=== PATIENT | male | born 1990 | race Caucasian/White ===

== ENCOUNTER → 2023-07-23 | Outpatient (REF) | payer OTHER ==
[2023-07-23 10:30] LABS: SEMEN APPEARANCE OPAQUE (OPAQUE); SEMEN VISCOSITY LIQUID (LIQUID); SEMEN VOLUME 6.4 ml (2.0-5.0); SEMEN pH 8.5 (7.0-8.0)
[2023-07-23 10:31] LABS: WBC CONCENTRATION >1 M/ml (<=1 M/ml)
== END ==
LOC: M LAB REF 10:18
PROVIDERS: ATTEND Physician Assistant
DX: N46.9 Male infertility, unspecified (principal)

== ENCOUNTER 2024-01-30 13:11 | Inpatient (IN) | payer OTHER ==
[~2024-01-30] VITALS: Ht 177.8 cm; Wt 63.2 kg
[2024-01-30 13:52] LABS: HEMATOCRIT 43.7 % (42.0-52.0); HEMOGLOBIN 14.5 g/dl (13.5-17.5); MEAN CORPUSCULAR HEMOGLOBIN 28.9 pg (27.0-33.0); MEAN CORPUSCULAR HGB CONC 33.2 g/dl (32.0-36.5); MEAN CORPUSCULAR VOLUME 87.1 fl (80.0-96.0); PLATELET COUNT, AUTOMATED 233 10^3/uL (150-450); RED BLOOD COUNT 5.02 10^6/uL (4.30-6.10); WHITE BLOOD COUNT 11.3 10^3/uL (4.0-10.0)
[2024-01-30 14:17] LABS: AMPHETAMINES LEVEL URINE NEGATIVE (NEGATIVE); BARBITURATES URINE NEGATIVE (NEGATIVE); BENZODIAZEPINES URINE NEGATIVE (NEGATIVE); CANNABINOIDS URINE NEGATIVE (NEGATIVE); COCAINE METABOLITE URINE NEGATIVE (NEGATIVE); METHADONE URINE NEGATIVE (NEGATIVE); OPIATES URINE NEGATIVE (NEGATIVE); PHENCYCLIDINE URINE NEGATIVE (NEGATIVE)
[2024-01-30 14:19] LABS: ETHYL ALCOHOL (ETHANOL) < 0.003 % (0.000-0.010)
[2024-01-30 14:21] LABS: ALBUMIN 4.4 G/DL (3.2-5.2); ALKALINE PHOSPHATASE 70 U/L (46-116); ALT/SGPT 38 U/L (7.0-40); AST/SGOT 28 U/L (<34); BILIRUBIN,DIRECT 0.1 MG/DL (<0.4); BILIRUBIN,TOTAL 0.3 MG/DL (0.3-1.2); BLOOD UREA NITROGEN 26 MG/DL (9-23); CALCIUM LEVEL 9.5 MG/DL (8.5-10.1); CARBON DIOXIDE LEVEL 31 MMOL/L (20-31); CHLORIDE LEVEL 106 MMOL/L (98-107); CREATININE FOR GFR 1.65 MG/DL (0.70-1.30); GLOMERULAR FILTRATION RATE 51.7 (>60); GLUCOSE, FASTING 87 MG/DL (60-100); POTASSIUM SERUM 4.1 MMOL/L (3.5-5.1); SALICYLATE LEVEL < 3.0 MG/DL (<30); SODIUM LEVEL 142 MMOL/L (136-145); TOTAL PROTEIN 7.4 G/DL (5.7-8.2)
[2024-01-30 14:23] LABS: THYROID STIMULATING HORMONE 1.452 uIU/ML (0.55-4.78)
[2024-01-30] MEDS: NICOTINE 21MG/24HR 1 EA TRANSDERMAL TD ONE (16:22)
[2024-01-30] MEDS ORDERED: HOME MED LIST COMPLETE! XX SCH (18:10)
[2024-01-30] MEDS ORDERED: diphenhydrAMINE 25MG CAP PO PRN (22:15)
[2024-01-30] MEDS ORDERED: MAALOX 30 ML SUSP *UDC PO PRN (22:15)
[2024-01-30] MEDS ORDERED: ACETAMINOPHEN TAB 650MG DOSE (2X325MG) PO PRN (22:15)
[2024-01-30] MEDS ORDERED: LORazepam 1 MG TAB PO PRN (22:15)
[2024-01-30] MEDS ORDERED: MOM 30ML SUSPENSION UDC PO PRN (22:15)
[2024-01-30] MEDS ORDERED: IBUPROFEN 400MG TAB PO PRN (22:15)
[2024-01-31] MEDS: traZODone 50 MG TAB PO PRN (00:20)
[2024-01-31] MEDS ORDERED: LORazepam 2 MG TAB PO PRN (00:40)
[2024-01-31 00:45] VITALS: BP 135/85; TEMP 98.1; O2SAT 100
[2024-01-31 06:14] VITALS: BP 122/59; TEMP 97.6; O2SAT 100
[2024-01-31] MEDS: FOLIC ACID 1MG TAB PO SCH (09:18)
[2024-01-31] MEDS: MULTIVITAMINS/MINERALS THERAP 1 TAB PO SCH (09:18)
[2024-01-31] MEDS: THIAMINE 100 MG TAB PO SCH (09:18)
[2024-01-31] MEDS: OLANZapine ORAL DISINTEGRATING TAB 5MG PO PRN (09:21)
[2024-01-31 09:53] LABS: BLOOD UREA NITROGEN 24 MG/DL (9-23); CALCIUM LEVEL 9.1 MG/DL (8.5-10.1); CARBON DIOXIDE LEVEL 28 MMOL/L (20-31); CHLORIDE LEVEL 106 MMOL/L (98-107); CREATININE FOR GFR 1.26 MG/DL (0.70-1.30); GLOMERULAR FILTRATION RATE > 60.0 (>60); GLUCOSE, FASTING 96 MG/DL (60-100); POTASSIUM SERUM 4.4 MMOL/L (3.5-5.1); SODIUM LEVEL 138 MMOL/L (136-145)
[2024-01-31 14:00] VITALS: BP 121/70
[2024-01-31 16:04] VITALS: BP 121/70; TEMP 97.6; O2SAT 100
[2024-01-31 21:00] VITALS: BP 124/70
[2024-02-01 06:11] VITALS: BP 118/55
[2024-02-01 06:18] VITALS: BP 118/55; TEMP 98.7; O2SAT 100
[2024-02-01 07:52] LABS: CHOLESTEROL RISK RATIO 2.51 (<5); HDL CHOLESTEROL 43.7 MG/DL (>40); LDL CHOLESTEROL 53.5 MG/DL (<100); NON-HDL-C 66.3 MG/DL
[2024-02-01] MEDS: OLANZapine 5 MG TAB PO SCH (08:15)
[2024-02-01 09:00] VITALS: BP 118/55; TEMP 98.7; O2SAT 100
[2024-02-01 14:00] VITALS: BP 104/58
[2024-02-01 16:11] VITALS: BP 104/58; TEMP 98.6; O2SAT 100
[2024-02-02 06:18] VITALS: BP 129/66; TEMP 98.7; O2SAT 97
[2024-02-02] MEDS: NICOTINE 21MG/24HR 1 EA TRANSDERMAL TD PRN (07:45)
[2024-02-02 15:14] VITALS: BP 120/58; TEMP 98.8; O2SAT 99
[2024-02-02] MEDS: OLANZapine 5 MG TAB PO SCH (18:46)
[2024-02-03 06:14] VITALS: BP 114/69; TEMP 98.9; O2SAT 96
[2024-02-03] MEDS ORDERED: TRAZ-252 PO (09:56)
[2024-02-03] MEDS ORDERED: OLAN1TAB16 PO (09:56)
[2024-02-03] MEDS ORDERED: NICO21PAT TD (09:56)
== END 2024-02-03 13:19 | disposition home or self-care (01) | DRG 885 ==
LOC: M ED 13:11 → EDBD 13:11 → M ED INP 22:15 → M PSY 23:29
PROVIDERS: ADMIT Student in an Organized Health Care Education/Training Program; ATTEND Student in an Organized Health Care Education/Training Program
DX: F20.9 Schizophrenia, unspecified (principal); F19.951 Other psychoactive substance use, unspecified with psychoactive substance-induced psychotic disorder with hallucinations; F31.9 Bipolar disorder, unspecified; F10.90 Alcohol use, unspecified, uncomplicated; F17.290 Nicotine dependence, other tobacco product, uncomplicated

== ENCOUNTER 2024-02-04 16:04 | Inpatient (IN) | payer OTHER ==
[~2024-02-04] VITALS: Ht 177.8 cm; Wt 62.0 kg
[~2024-02-04 16:04] MED LIST: NICO21PAT TD; OLAN1TAB16 PO; TRAZ-252 PO
[2024-02-04 18:58] LABS: BASO % 0.3 % (0.0-1.0); EOS # 0.1 10^3/uL (0.0-0.5); EOS % 0.8 % (0.0-3.0); HEMATOCRIT 42.3 % (42.0-52.0); HEMOGLOBIN 14.1 g/dl (13.5-17.5); LYMPH # 2.2 10^3/uL (1.5-5.0); LYMPH % 17.2 % (24.0-44.0); MEAN CORPUSCULAR HEMOGLOBIN 28.7 pg (27.0-33.0); MEAN CORPUSCULAR HGB CONC 33.3 g/dl (32.0-36.5); MONO # 0.6 10^3/uL (0.0-0.8); NEUTROPHILS # 9.7 10^3/uL (1.5-8.5); NEUTROPHILS % 76.3 % (36.0-66.0); PLATELET COUNT, AUTOMATED 214 10^3/uL (150-450); RED BLOOD COUNT 4.92 10^6/uL (4.30-6.10); WHITE BLOOD COUNT 12.7 10^3/uL (4.0-10.0)
[2024-02-04 19:18] LABS: BLOOD UREA NITROGEN 18 MG/DL (9-23); CALCIUM LEVEL 9.2 MG/DL (8.5-10.1); CARBON DIOXIDE LEVEL 28 MMOL/L (20-31); CHLORIDE LEVEL 103 MMOL/L (98-107); CREATININE FOR GFR 1.18 MG/DL (0.70-1.30); GLOMERULAR FILTRATION RATE > 60.0 (>60); GLUCOSE, FASTING 102 MG/DL (60-100); POTASSIUM SERUM 4.4 MMOL/L (3.5-5.1); SODIUM LEVEL 135 MMOL/L (136-145)
[2024-02-04] MEDS: ceFAZolin SOD 2 GM in D5W MINI-BAG PLUS 50 ML IV ONE (20:42)
[2024-02-04] MEDS: KETOROLAC 30 MG/ML 1ML VIAL IV ONE (20:43)
[2024-02-04 20:45] LABS: ERYTHROCYTE SEDIMENTATION RATE 30 mm/hr (0-15)
[2024-02-04] MEDS: NS 500 ML IV ONE (22:33)
[2024-02-04 22:45] LABS: ALBUMIN 3.7 G/DL (3.2-5.2); ALKALINE PHOSPHATASE 63 U/L (46-116); ALT/SGPT 38 U/L (7.0-40); AST/SGOT 12 U/L (<34); BILIRUBIN,TOTAL 0.7 MG/DL (0.3-1.2); BLOOD UREA NITROGEN 20 MG/DL (9-23); CALCIUM LEVEL 8.8 MG/DL (8.5-10.1); CARBON DIOXIDE LEVEL 29 MMOL/L (20-31); CHLORIDE LEVEL 106 MMOL/L (98-107); CREATININE FOR GFR 1.34 MG/DL (0.70-1.30); GLOMERULAR FILTRATION RATE > 60.0 (>60); GLUCOSE, FASTING 109 MG/DL (60-100); POTASSIUM SERUM 4.2 MMOL/L (3.5-5.1); SODIUM LEVEL 140 MMOL/L (136-145); TOTAL PROTEIN 6.8 G/DL (5.7-8.2)
[2024-02-04] MEDS ORDERED: ACETAMINOPHEN TAB 650MG DOSE (2X325MG) PO PRN (23:20)
[2024-02-05] VITALS (8 sets, daily range): BP systolic 99–122; BP diastolic 55–76; TEMP 95.9–98.7; O2SAT 93–99
[2024-02-05] MEDS ORDERED: OLAN1TAB20 PO (00:24)
[2024-02-05] MEDS ORDERED: NICO1DIS12 TD (00:38)
[2024-02-05] MEDS ORDERED: TRAZ1TAB10 PO (00:38)
[2024-02-05] MEDS ORDERED: HOME MED LIST COMPLETE! XX SCH (00:40)
[2024-02-05] MEDS: NS 1,000 ML IV SCH (02:42)
[2024-02-05] MEDS: ceFAZolin SOD 2 GM in IV 1 EA IV SCH (05:27)
[2024-02-05] MEDS: CLOTRIMAZOLE 1% TOPICAL CREAM 30GM TOP SCH (06:00)
[2024-02-05 07:01] LABS: BASO # 0.1 10^3/uL (0.0-0.2); BASO % 0.6 % (0.0-1.0); EOS # 0.4 10^3/uL (0.0-0.5); EOS % 4.5 % (0.0-3.0); HEMATOCRIT 40.8 % (42.0-52.0); HEMOGLOBIN 13.2 g/dl (13.5-17.5); LYMPH # 1.6 10^3/uL (1.5-5.0); LYMPH % 19.6 % (24.0-44.0); MEAN CORPUSCULAR HEMOGLOBIN 28.4 pg (27.0-33.0); MEAN CORPUSCULAR HGB CONC 32.4 g/dl (32.0-36.5); MEAN CORPUSCULAR VOLUME 87.7 fl (80.0-96.0); MONO # 0.7 10^3/uL (0.0-0.8); MONO % 8.9 % (2.0-8.0); NEUTROPHILS # 5.4 10^3/uL (1.5-8.5); PLATELET COUNT, AUTOMATED 176 10^3/uL (150-450); RED BLOOD COUNT 4.65 10^6/uL (4.30-6.10); WHITE BLOOD COUNT 8.2 10^3/uL (4.0-10.0)
[2024-02-05 07:28] LABS: ALBUMIN 3.4 G/DL (3.2-5.2); ALKALINE PHOSPHATASE 62 U/L (46-116); ALT/SGPT 32 U/L (7.0-40); AST/SGOT 8 U/L (<34); BILIRUBIN,TOTAL 0.4 MG/DL (0.3-1.2); BLOOD UREA NITROGEN 24 MG/DL (9-23); CALCIUM LEVEL 8.8 MG/DL (8.5-10.1); CARBON DIOXIDE LEVEL 29 MMOL/L (20-31); CHLORIDE LEVEL 108 MMOL/L (98-107); CREATININE FOR GFR 1.36 MG/DL (0.70-1.30); GLOMERULAR FILTRATION RATE > 60.0 (>60); GLUCOSE, FASTING 92 MG/DL (60-100); POTASSIUM SERUM 4.1 MMOL/L (3.5-5.1); SODIUM LEVEL 143 MMOL/L (136-145); TOTAL PROTEIN 6.4 G/DL (5.7-8.2)
[2024-02-05] MEDS: DOCUSATE SODIUM 100MG CAPSULE PO SCH ×2 (09:00→20:14)
[2024-02-05] MEDS: KETOROLAC 30 MG/ML 1ML VIAL IV PRN (10:36)
[2024-02-05] MEDS ORDERED: LIDOCAINE 2% 100MG/5ML SDV (FOR ANES.) As Ordered ONE (14:29)
[2024-02-05] MEDS ORDERED: KETOROLAC 60MG 2ML VIAL As Ordered ONE (14:29)
[2024-02-05] MEDS ORDERED: propofoL 200 MG/20 ML VIAL As Ordered ONE (14:29)
[2024-02-05] MEDS ORDERED: ACETAMINOPHEN 1000MG 100ML IV BAG As Ordered ONE (14:29)
[2024-02-05] MEDS ORDERED: ONDANSETRON 4MG 2ML VIAL As Ordered ONE (14:29)
[2024-02-05] MEDS ORDERED: fentaNYL 100 MCG/2 ML INJECTION As Ordered ONE (14:30)
[2024-02-05] MEDS ORDERED: MIDAZOLAM INJ 2MG/2ML VIAL As Ordered ONE (14:30)
[2024-02-05] MEDS ORDERED: dexmedeTOMIDine (4MCG/ML)200MCG/50ML BTL (PRECEDEX) As Ordered ONE (14:30)
[2024-02-05] MEDS: ceFAZolin 1GM VIAL As Ordered ONE (15:05)
[2024-02-05] MEDS: ceFAZolin 2 GM/D5W 50 ML IV BAG As Ordered ONE (15:06)
[2024-02-05] MEDS ORDERED: SENNA 8.6 MG TAB (SENOKOT) PO PRN (15:45)
[2024-02-05] MEDS ORDERED: ONDANSETRON 4MG 2ML VIAL IV PRN (15:45)
[2024-02-05] MEDS ORDERED: zolPIDEM TARTRATE 5 MG TAB PO PRN (15:45)
[2024-02-05] MEDS ORDERED: HYDROmorphone 2 MG TAB PO PRN (15:45)
[2024-02-05] MEDS ORDERED: ACETAMINOPHEN TAB 650MG DOSE (2X325MG) PO PRN (15:45)
[2024-02-05] MEDS ORDERED: diphenhydrAMINE 50MG/ML VIAL IV PRN (15:45)
[2024-02-05] MEDS ORDERED: VANCOMYCIN HCL 1,000 MG, VIAL MATE ADAPTER 1 EACH in D5W 250 ML IV SCH (15:45)
[2024-02-05] MEDS: NORCO, ANEXSIA 5/325MG TABLET (HYDROcodone/ACETAMINOPHEN) PO PRN (17:26)
[2024-02-05] MEDS: VANCOMYCIN HCL 750 MG, VIAL MATE ADAPTER 1 EACH in D5W 250 ML IV ONE (17:27)
[2024-02-05] MEDS: VANCOMYCIN HCL 500 MG in D5W MINI-BAG PLUS 100 ML IV ONE (20:13)
[2024-02-05] MEDS: NICOTINE 21MG/24HR 1 EA TRANSDERMAL TD SCH (20:13)
[2024-02-05] MEDS: OLANZapine 5 MG TAB PO SCH (20:14)
[2024-02-05] MEDS: KETOROLAC 30 MG/ML 1ML VIAL IV SCH (21:52)
[2024-02-05] MEDS: traZODone 50 MG TAB PO PRN (21:55)
[2024-02-05] MEDS: PIPERACILLIN/TAZOBACTAM SOD 3.375 GM in D5W MINI-BAG PLUS 50 ML IV SCH (21:55)
[2024-02-06] MEDS: VANCOMYCIN HCL 500 MG in D5W MINI-BAG PLUS 100 ML IV SCH (02:01)
[2024-02-06] MEDS: oxyCODONE 5MG TAB PO PRN (02:02)
[2024-02-06 04:36] VITALS: BP 118/64; TEMP 97.2; O2SAT 97
[2024-02-06 08:00] VITALS: BP 115/69; TEMP 98; O2SAT 98
[2024-02-06] MEDS: NICOTINE 21MG/24HR 1 EA TRANSDERMAL TD SCH (09:04)
[2024-02-06 12:00] VITALS: BP 130/75; TEMP 95.8; O2SAT 99
[2024-02-06 13:07] LABS: BASO % 0.2 % (0.0-1.0); EOS # 0.1 10^3/uL (0.0-0.5); HEMATOCRIT 39.5 % (42.0-52.0); HEMOGLOBIN 12.9 g/dl (13.5-17.5); LYMPH # 1.8 10^3/uL (1.5-5.0); LYMPH % 19.2 % (24.0-44.0); MEAN CORPUSCULAR HEMOGLOBIN 28.9 pg (27.0-33.0); MEAN CORPUSCULAR HGB CONC 32.7 g/dl (32.0-36.5); MEAN CORPUSCULAR VOLUME 88.4 fl (80.0-96.0); MONO # 0.7 10^3/uL (0.0-0.8); MONO % 7.1 % (2.0-8.0); NEUTROPHILS # 6.6 10^3/uL (1.5-8.5); NEUTROPHILS % 72.1 % (36.0-66.0); PLATELET COUNT, AUTOMATED 205 10^3/uL (150-450); RED BLOOD COUNT 4.47 10^6/uL (4.30-6.10); WHITE BLOOD COUNT 9.1 10^3/uL (4.0-10.0)
[2024-02-06 13:26] LABS: VANCOMYCIN LEVEL TROUGH 7.3 UG/ML (10.0-20.0)
[2024-02-06 13:27] LABS: BLOOD UREA NITROGEN 28 MG/DL (9-23); CALCIUM LEVEL 8.3 MG/DL (8.5-10.1); CARBON DIOXIDE LEVEL 29 MMOL/L (20-31); CHLORIDE LEVEL 109 MMOL/L (98-107); CREATININE FOR GFR 1.17 MG/DL (0.70-1.30); GLOMERULAR FILTRATION RATE > 60.0 (>60); GLUCOSE, FASTING 110 MG/DL (60-100); POTASSIUM SERUM 3.9 MMOL/L (3.5-5.1); SODIUM LEVEL 142 MMOL/L (136-145)
[2024-02-06] MEDS: DOXYCYCLINE HYCLATE 100MG TABLET PO SCH (14:28)
[2024-02-06 16:00] VITALS: BP 109/66; TEMP 97.8; O2SAT 98
[2024-02-06] MEDS: MORPHINE 4 MG/ML 1ML VIAL IV PRN (17:11)
[2024-02-06 22:13] VITALS: BP 130/71; TEMP 97.5; O2SAT 99
[2024-02-07 04:47] VITALS: BP 117/69; TEMP 97.9; O2SAT 98
[2024-02-07 07:05] LABS: BASO % 0.5 % (0.0-1.0); EOS # 0.2 10^3/uL (0.0-0.5); EOS % 3.4 % (0.0-3.0); HEMATOCRIT 41.1 % (42.0-52.0); HEMOGLOBIN 13.3 g/dl (13.5-17.5); LYMPH # 2.5 10^3/uL (1.5-5.0); LYMPH % 41.1 % (24.0-44.0); MEAN CORPUSCULAR HGB CONC 32.4 g/dl (32.0-36.5); MEAN CORPUSCULAR VOLUME 89.7 fl (80.0-96.0); MONO # 0.4 10^3/uL (0.0-0.8); NEUTROPHILS # 2.9 10^3/uL (1.5-8.5); NEUTROPHILS % 47.5 % (36.0-66.0); PLATELET COUNT, AUTOMATED 203 10^3/uL (150-450); RED BLOOD COUNT 4.58 10^6/uL (4.30-6.10); WHITE BLOOD COUNT 6.1 10^3/uL (4.0-10.0)
[2024-02-07 07:31] LABS: BLOOD UREA NITROGEN 22 MG/DL (9-23); CALCIUM LEVEL 8.5 MG/DL (8.5-10.1); CARBON DIOXIDE LEVEL 28 MMOL/L (20-31); CHLORIDE LEVEL 111 MMOL/L (98-107); CREATININE FOR GFR 0.98 MG/DL (0.70-1.30); GLOMERULAR FILTRATION RATE > 60.0 (>60); GLUCOSE, FASTING 87 MG/DL (60-100); POTASSIUM SERUM 4.3 MMOL/L (3.5-5.1); SODIUM LEVEL 145 MMOL/L (136-145)
[2024-02-07] MEDS ORDERED: HYDR-3715 PO (09:12)
[2024-02-07] MEDS ORDERED: DOXY100T PO (09:12)
[2024-02-07] MEDS ORDERED: CLOTR1CR TOP (09:12)
[2024-02-07] MEDS ORDERED: BACT800T5 PO (10:15)
== END 2024-02-07 12:30 | disposition home or self-care (01) | DRG 603 ==
LOC: M ED 16:04 → EEVIPCON 23:18 → M ED INP 23:18 → M MS5PR 02-05 10:12
PROVIDERS: ADMIT Preventive Medicine Undersea and Hyperbaric Medicine; ATTEND Hospitalist
PROC: 0HBFXZZ Excision of Right Hand Skin, External Approach (ICD-10-PCS; principal; 2024-02-05 15:30)
DX: L02.511 Cutaneous abscess of right hand (principal); F17.290 Nicotine dependence, other tobacco product, uncomplicated; Z79.899 Other long term (current) drug therapy; B35.4 Tinea corporis; B95.62 Methicillin resistant Staphylococcus aureus infection as the cause of diseases classified elsewhere

== ENCOUNTER 2024-03-17 10:30 | Inpatient (IN) | payer OTHER ==
[~2024-03-17] VITALS: Ht 180.3 cm; Wt 63.6 kg
[~2024-03-17 10:30] MED LIST changes: +BACT800T5 PO; +CLOTR1CR TOP; +DOXY100T PO; +HYDR-3715 PO; +NICO1DIS12 TD; +OLAN1TAB20 PO; +TRAZ1TAB10 PO
[2024-03-17 11:43] LABS: HEMATOCRIT 36.8 % (42.0-52.0); HEMOGLOBIN 12.4 g/dl (13.5-17.5); MEAN CORPUSCULAR HGB CONC 33.7 g/dl (32.0-36.5); PLATELET COUNT, AUTOMATED 131 10^3/uL (150-450); RED BLOOD COUNT 4.28 10^6/uL (4.30-6.10); WHITE BLOOD COUNT 6.5 10^3/uL (4.0-10.0)
[2024-03-17] MEDS ORDERED: CLOT1CRE56 TOP (12:05)
[2024-03-17] MEDS ORDERED: DIVA500T94 PO (12:05)
[2024-03-17 12:06] LABS: ETHYL ALCOHOL (ETHANOL) < 0.003 % (0.000-0.010)
[2024-03-17 12:08] LABS: ALBUMIN 3.8 G/DL (3.2-5.2); ALKALINE PHOSPHATASE 57 U/L (46-116); ALT/SGPT 39 U/L (7.0-40); AST/SGOT 23 U/L (<34); BILIRUBIN,DIRECT 0.3 MG/DL (<0.4); BILIRUBIN,TOTAL 0.6 MG/DL (0.3-1.2); BLOOD UREA NITROGEN 19 MG/DL (9-23); CALCIUM LEVEL 8.4 MG/DL (8.5-10.1); CARBON DIOXIDE LEVEL 29 MMOL/L (20-31); CHLORIDE LEVEL 105 MMOL/L (98-107); CREATININE FOR GFR 1.12 MG/DL (0.70-1.30); GLOMERULAR FILTRATION RATE > 60.0 (>60); GLUCOSE, FASTING 88 MG/DL (60-100); SALICYLATE LEVEL < 3.0 MG/DL (<30); SODIUM LEVEL 138 MMOL/L (136-145); TOTAL PROTEIN 6.8 G/DL (5.7-8.2)
[2024-03-17] MEDS ORDERED: HOME MED LIST COMPLETE! XX SCH (12:10)
[2024-03-17 12:11] LABS: THYROID STIMULATING HORMONE 0.924 uIU/ML (0.55-4.78)
[2024-03-17 13:36] LABS: AMPHETAMINES LEVEL URINE NEGATIVE (NEGATIVE); BARBITURATES URINE NEGATIVE (NEGATIVE); BENZODIAZEPINES URINE NEGATIVE (NEGATIVE); CANNABINOIDS URINE NEGATIVE (NEGATIVE); COCAINE METABOLITE URINE NEGATIVE (NEGATIVE); METHADONE URINE NEGATIVE (NEGATIVE); OPIATES URINE NEGATIVE (NEGATIVE); PHENCYCLIDINE URINE NEGATIVE (NEGATIVE)
[2024-03-17] MEDS ORDERED: IBUPROFEN 400MG TAB PO PRN (23:20)
[2024-03-17] MEDS ORDERED: diphenhydrAMINE 25MG CAP PO PRN (23:20)
[2024-03-17] MEDS ORDERED: MOM 30ML SUSPENSION UDC PO PRN (23:20)
[2024-03-17] MEDS ORDERED: ACETAMINOPHEN TAB 650MG DOSE (2X325MG) PO PRN (23:20)
[2024-03-17] MEDS ORDERED: MAALOX 30 ML SUSP *UDC PO PRN (23:20)
[2024-03-18 04:19] VITALS: BP 126/58; TEMP 97.7; O2SAT 99
[2024-03-18 06:36] VITALS: BP 134/78; TEMP 97.9; O2SAT 96
[2024-03-18] MEDS: NICOTINE 21MG/24HR 1 EA TRANSDERMAL TD SCH (11:49)
[2024-03-18] MEDS: CLOTRIMAZOLE 1% TOPICAL CREAM 30GM TOP SCH (14:25)
[2024-03-18 17:25] VITALS: BP 125/79; TEMP 97.8; O2SAT 98
[2024-03-18] MEDS: traZODone 50 MG TAB PO PRN (20:21)
[2024-03-19 06:43] VITALS: BP 128/68; TEMP 98.5; O2SAT 96
[2024-03-19] MEDS: OLANZapine 5 MG TAB PO SCH (11:05)
[2024-03-19 17:32] VITALS: BP 118/58; TEMP 98; O2SAT 98
[2024-03-19] MEDS: OLANZapine 10 MG TAB PO SCH (20:58)
[2024-03-20 06:27] VITALS: BP 137/80; TEMP 98.7; O2SAT 98
[2024-03-20 17:03] VITALS: BP 123/63; TEMP 98.3; O2SAT 98
[2024-03-21 06:21] VITALS: BP 119/63; TEMP 97.6; O2SAT 100
[2024-03-21 19:08] VITALS: BP 134/83; TEMP 98
[2024-03-22 06:46] VITALS: BP 120/62; TEMP 98.3; O2SAT 98
[2024-03-22 17:40] VITALS: BP 126/64; TEMP 98.3
[2024-03-23 06:39] VITALS: BP 138/77; TEMP 97.8; O2SAT 98
[2024-03-23] MEDS ORDERED: OLAN1TAB16 PO (08:52)
[2024-03-23] MEDS ORDERED: OLAN1TAB20 PO (08:52)
== END 2024-03-23 11:11 | disposition home or self-care (01) | DRG 885 ==
LOC: M ED 10:30 → M ED INP 23:16 → M PSY 03-18 02:37
PROVIDERS: ADMIT Psychiatry & Neurology Psychiatry; ATTEND Psychiatry & Neurology Child & Adolescent Psychiatry
DX: F20.0 Paranoid schizophrenia (principal); G47.00 Insomnia, unspecified; F41.9 Anxiety disorder, unspecified; B35.9 Dermatophytosis, unspecified; D64.9 Anemia, unspecified; D69.6 Thrombocytopenia, unspecified; Z79.899 Other long term (current) drug therapy